=== PATIENT | male | born 1965 | race Caucasian/White ===

== ENCOUNTER 2022-02-27 09:39 | Emergency (ER) | payer OTHER | END 2022-02-27 10:30 | disposition home or self-care (01) | LOC: BURERS 09:39 | DX: S29.012A Strain of muscle and tendon of back wall of thorax, initial encounter (principal); E11.9 Type 2 diabetes mellitus without complications; X50.1XXA Overexertion from prolonged static or awkward postures, initial encounter | CPT/HCPCS: 99283 ==